=== PATIENT | male | born 1950 | race Caucasian/White ===

== ENCOUNTER 2018-06-14 07:02 | Day surgery (SDC) | payer MEDICARE, OTHER ==
[~2018-06-14] VITALS: Ht 182.9 cm; Wt 88.0 kg
[~2018-06-14 07:02] MED LIST: ATOR40TA PO; Aspirin EC81 MG PO; Atenolol50 MG PO; CLOP75 PO; Coq-1030 MG PO; FAMO20 PO; FINA5 PO; HYDCHL25 PO; ISOD40ER PO; Isosorbide Mono60 MG PO; LISI20 PO; LORPSEER12 PO; METF500 PO; METF500C PO; METH5 PO; Mirapex0.25 MG PO; Multivitamin1 EAC1 PO; Nitrostat0.4 MG SL; Simvastatin20 MG PO; TAMS.4ER; TAMS.4ER PO; Testostero100 MG/1 M IM; VITAMIN D32000 UNIT PO; [UNRECOGNIZED DRUG - REMARK]
[2018-06-14] MEDS ORDERED: CLOP75 PO (11:38)
--- NOTE | 2018-06-14 13:44 | NUR ---
PT OUT OF BED, GETTING DRESSED WITH NO NEEDED ASSISTANCE, BILATERAL GROIN SITES STABLE. PT'S DAUGHTER CALLED ON TELEPHONE FOR RIDE HOME. PT VERBALIZED UNDERSTANDING OF D/C INSTRUCTIONS. PAPERWORK PLACED INTO DISCHARGE F[facility] OF [facility]. WILL CONTINUE TO MONITOR BILATERAL GROIN SITES UNTIL DISCHARGE.
--- NOTE | 2018-06-14 14:45 | NUR ---
PT DAUGHTER ARRIVES TO DRIVE HIM HOME. IV REMOVED FROM LEFT HAND WITH CATH INTACT, PRESSURE DRESSING APPLIED. BILATERAL GROIN SITES APPEAR TO BE STABLE. PT ATE 75% OF LUNCH TRAY. AMBULATES WITH STEADY GAIT. DENIES PAIN. PT INFORMED THAT FOLLOW UP APPOINTMENT HAS NOT BEEN SCHEDULED YET, MESSAGE HAS BEEN LEFT FOR [facility] OFFICE TO CALL PT WITH DATE AND TIME. DONTE AT TIME OF DISPO.
== END 2018-06-14 14:45 | disposition home or self-care (01) ==
LOC: MHTC 07:02
DX: I65.23 Occlusion and stenosis of bilateral carotid arteries (principal); I77.1 Stricture of artery; Z95.1 Presence of aortocoronary bypass graft; E11.51 Type 2 diabetes mellitus with diabetic peripheral angiopathy without gangrene; I35.0 Nonrheumatic aortic (valve) stenosis; I10 Essential (primary) hypertension; E78.5 Hyperlipidemia, unspecified; K21.9 Gastro-esophageal reflux disease without esophagitis; Z95.5 Presence of coronary angioplasty implant and graft; Z87.891 Personal history of nicotine dependence; Z82.49 Family history of ischemic heart disease and other diseases of the circulatory system; Z79.82 Long term (current) use of aspirin; Z79.899 Other long term (current) drug therapy; Z79.84 Long term (current) use of oral hypoglycemic drugs
CPT/HCPCS: 36223; 36225; 37218; 37221; 37222; 75625; 75716; 82947; 85347; 99152; 99153; C1725; C1760; C1769; C1876; C1887; C1894; J1200; J1644; J2250; J3010; J7030; Q9967

== ENCOUNTER 2018-06-18 21:14 | Emergency (ER) | payer MEDICARE, OTHER ==
[~2018-06-18] VITALS: Ht 177.8 cm; Wt 88.0 kg
== END 2018-06-18 21:45 | disposition home or self-care (01) ==
LOC: ER 21:14
DX: S50.11XA Contusion of right forearm, initial encounter (principal); X58.XXXA Exposure to other specified factors, initial encounter; Z79.899 Other long term (current) drug therapy; Z79.84 Long term (current) use of oral hypoglycemic drugs; Z79.82 Long term (current) use of aspirin; I10 Essential (primary) hypertension; E11.9 Type 2 diabetes mellitus without complications; Z87.891 Personal history of nicotine dependence
CPT/HCPCS: 99282

== ENCOUNTER → 2018-11-24 | Outpatient (CLI) | payer MEDICARE, OTHER ==
[2018-11-24 12:54] LABS: BASOPHILS ABSOLUTE AUTO 0.02 K/mm3 (0.00-0.23); BASOPHILS PERCENT AUTO 0 % (0-2); EOSINOPHILS ABSOLUTE AUTO 0.07 K/mm3 (0.00-0.68); EOSINOPHILS PERCENT AUTO 1 % (0-6); Hematocrit 38.9 % (37.0-53.0); Hemoglobin 13.9 g/dL (13.5-17.5); IMMATURE GRAN ABSOLUTE AUTO 0.02 K/mm3 (0.00-0.10); IMMATURE GRAN PERCENT AUTO 0 % (0-1); LYMPHOCYTES ABSOLUTE AUTO 2.35 K/mm3 (0.84-5.20); LYMPHOCYTES PERCENT AUTO 40 % (21-46); MONOCYTES PERCENT AUTO 7 % (4-13); Mean Corpuscular HGB 32.8 pg (26.0-34.0); Mean Corpuscular HGB Conc 35.7 g/dL (31.5-36.5); Mean Corpuscular Volume 92 fL (80-100); NEUTROPHILS ABSOLUTE AUTO 3.09 K/mm3 (1.96-9.15); NEUTROPHILS PERCENT AUTO 52 % (41-73); RDW Coefficient Variation 12.6 % (11.7-14.2); RDW Standard Deviation 41.7 fL (35.1-46.3); Red Blood Cell Count 4.24 M/mm3 (4.30-5.90); White Blood Cell Count 5.95 K/mm3 (4.00-11.30)
[2018-11-24 12:56] LABS: Mean Platelet Volume 10.6 fL (9.1-12.4); Platelet Count 135 K/mm3 (150-400)
[2018-11-24 13:04] LABS: Alanine Aminotransfer (ALT/SGP 40 U/L (12-78); Albumin, Blood 3.4 g/dL (3.4-5.0); Albumin/Globulin Ratio 0.9 (0.8-1.8); Alk Phos 91 U/L (40-126); Anion Gap 10 mmol/L (6-16); Aspartate Aminotrans (AST/SGOT 31 U/L (12-37); Bilirubin, Total 0.5 mg/dL (0.1-1.0); Blood Urea Nitrogen 18 mg/dL (8-24); Bun/Creatinine Ratio 18.2 (12.0-20.0); CO2, Blood 24 mmol/L (21-32); Calcium, Blood 8.8 mg/dL (8.5-10.1); Chloride, Blood 101 mmol/L (98-108); Creatinine, Blood 0.99 mg/dL (0.60-1.20); Globulin, Blood 3.9 g/dL (2.2-4.0); Glomerular Filtration Rate >60 (60-); Glucose, Blood 244 mg/dL (70-99); Potassium, Blood 4.1 mmol/L (3.5-5.5); Sodium, Blood 135 mmol/L (136-145); Total Protein, Blood 7.3 g/dL (6.4-8.2)
== END | disposition home or self-care (01) ==
LOC: LAB EV 12:42 → LAB SHORT 12:42
PROVIDERS: General Practice
DX: L08.9 Local infection of the skin and subcutaneous tissue, unspecified (principal)
CPT/HCPCS: 80053; 85025

== ENCOUNTER 2020-10-29 10:20 | Day surgery (SDC) | payer MEDICARE, OTHER ==
[~2020-10-29] VITALS: Ht 177.8 cm; Wt 88.7 kg
[~2020-10-29 10:20] MED LIST changes: +GLIP5 PO; +PIOG15 PO; +VITAMIN D325 MC3 PO
== END 2020-10-29 11:11 | disposition home or self-care (01) ==
LOC: ORSCSDS 10:20
PROVIDERS: Anesthesiology
PROC: 3E0R33Z Introduction of Anti-inflammatory into Spinal Canal, Percutaneous Approach (ICD-10-PCS; principal; 2020-10-29 11:30)
DX: M54.16 Radiculopathy, lumbar region (principal); M96.1 Postlaminectomy syndrome, not elsewhere classified; M54.89 Other dorsalgia; Z87.891 Personal history of nicotine dependence; E11.9 Type 2 diabetes mellitus without complications; Z79.82 Long term (current) use of aspirin; Z79.84 Long term (current) use of oral hypoglycemic drugs; Z79.899 Other long term (current) drug therapy
CPT/HCPCS: J1040

== ENCOUNTER 2022-12-14 11:08 | Day surgery (SDC) | payer MEDICARE, OTHER ==
[~2022-12-14] VITALS: Ht 177.8 cm; Wt 87.5 kg
[2022-12-14] VITALS (8 sets, daily range): BP systolic 138–178; BP diastolic 62–92
[~2022-12-14 11:08] MED LIST changes: +AFRIN15 M6 INH; +ALLEGRA ALLERG180 MG PO; +ATEN50 PO; +EFFIENT10 MG PO; +HYDACE10B PO; -LISI20 PO; +LISI5 PO; +NITR.4SL SL; +OXYM.05NI; +PRAM.125 PO; -TAMS.4ER
--- NOTE | 2022-12-14 17:18 | NUR ---
oozing noted to access site, manual pressure held for 10 min and new robina placed.
--- NOTE | 2022-12-14 18:10 | NUR ---
Dishcarge instructions reviewed with pt and family member. Small amount of oozing noted to chaitanya quarles. Pt able to get dressed w/o difficulty. Denies any pain at this time. Groin is soft and non tender, vss. Pt instructed on care if oozing begins from site once he is home, and verbalized understanding. Pt also instructed if groin becomes swollen and painful to return to the ED. PT vss upon departure. Taken via wheel chair to exit, pt daughter to drive him home.
== END 2022-12-14 22:41 | disposition home or self-care (01) ==
LOC: MHTC 11:08
DX: E11.51 Type 2 diabetes mellitus with diabetic peripheral angiopathy without gangrene (principal); I25.10 Atherosclerotic heart disease of native coronary artery without angina pectoris; K21.9 Gastro-esophageal reflux disease without esophagitis; I10 Essential (primary) hypertension; Z87.891 Personal history of nicotine dependence
CPT/HCPCS: 75716; 75774; 76937; 99152; 99153; C1725; C1769; C1874; C1887; C1894; C9764; C9765; J1644; J2250; J3010; J7030; J7050; Q9967

== ENCOUNTER 2023-05-27 15:51 | Observation (INO) | payer MEDICARE, OTHER ==
[~2023-05-27] VITALS: Ht 177.8 cm; Wt 88.0 kg
[~2023-05-27 15:51] MED LIST changes: +LISI20 PO; -LISI5 PO
[2023-05-27] MEDS ORDERED: Pioglitazone HCl 15 MG Tab PO ONE (19:50)
[2023-05-27] MEDS ORDERED: Atenolol 50 MG Tab PO ONE (19:50)
[2023-05-27] MEDS ORDERED: GlipiZIDE 5 MG Tab PO ONE (19:50)
[2023-05-27] MEDS ORDERED: Lisinopril 20 MG Tab PO ONE (19:50)
[2023-05-27] MEDS ORDERED: Tamsulosin HCl 0.4 MG Cap PO ONE (19:50)
[2023-05-27] MEDS ORDERED: Aspirin 325 MG Tab PO ONE (19:50)
[2023-05-27] MEDS ORDERED: HydrALAZINE HCl 20 MG / ML 1ML Vial IV ONE (21:40)
[2023-05-27 22:47] LABS: Anti-Xa UFH, PHA Monitoring <0.10 IU/mL; International Normalized Ratio 1.01; Prothrombin Time Results 10.6 Sec (9.7-11.5)
[2023-05-27] MEDS ORDERED: Heparin Sodium,Porcine/0.5 NS 500 ML IV SCH (23:20)
[2023-05-28] VITALS (8 sets, daily range): BP systolic 130–169; BP diastolic 61–93
[2023-05-28] MEDS ORDERED: Ondansetron HCl 2 MG / ML 2ML Vial IV PRN (00:15)
[2023-05-28] MEDS ORDERED: Acetaminophen 325 MG TABLET PO PRN (00:20)
[2023-05-28] MEDS ORDERED: FLU VACC QS2023-24(6MOS UP)/PF 60 MCG/0.5 ML SYRINGE IM ONE (00:20)
[2023-05-28] MEDS ORDERED: OXYMETAZOLINE 0.05% PRN (00:25)
[2023-05-28] MEDS ORDERED: HYDROcodone 5-APAP 325 TAB PO PRN (00:25)
[2023-05-28] MEDS ORDERED: Nitroglycerin 0.4 MG SUBL SL PRN (00:25)
[2023-05-28] MEDS ORDERED: Lactated Ringer's 1,000 ML IV SCH (01:00)
--- NOTE | 2023-05-28 05:24 | NUR ---
Admit note/Shift summary: Patient was brought to the floor from the ER on the strecher. He was able to stand and transfer from the stretcher to the bed. Patient came to the ER today due to pressure in his chest when walking. He was brought to the floor with a Heparin drip infusing at 26.7 ml/hr. IV site looks good with no redness or swelling noted. Patient is alert and oriented x 4. His daughter is at his bedside. He is on room air. He has a tele monitor and is in a sinus rhythm. Patient denies pain at this time. He has a history of having several cardiac stents placed in the past. He has diagnosis of HTN and DM type 2. He is on po medication at home to control his diabetes. He lives at home with his and other family members. A skin check was done with Fili De León RN. No skin breakdown noted. His troponin level was [address] Diaz was notified and a repeat was ordered for the AM. Patient is NPO since midnight. No distress noted. Dr. Diaz was notified.
[2023-05-28] MEDS ORDERED: Insulin Regular 100 UNIT/ML 10ML Vial SC SCH (06:00)
[2023-05-28 08:20] LABS: BASOPHILS ABSOLUTE AUTO 0.02 K/mm3 (0.00-0.23); BASOPHILS PERCENT AUTO 0 % (0-2); EOSINOPHILS ABSOLUTE AUTO 0.11 K/mm3 (0.00-0.68); EOSINOPHILS PERCENT AUTO 2 % (0-6); Hemoglobin 13.1 g/dL (13.5-17.5); IMMATURE GRAN ABSOLUTE AUTO 0.03 K/mm3 (0.00-0.10); IMMATURE GRAN PERCENT AUTO 1 % (0-1); LYMPHOCYTES ABSOLUTE AUTO 3.12 K/mm3 (0.84-5.20); LYMPHOCYTES PERCENT AUTO 48 % (21-46); MONOCYTES ABSOLUTE AUTO 0.56 K/mm3 (0.16-1.47); MONOCYTES PERCENT AUTO 9 % (4-13); Mean Corpuscular HGB 32.8 pg (26.0-34.0); Mean Corpuscular HGB Conc 35.4 g/dL (31.5-36.5); Mean Corpuscular Volume 93 fL (80-100); Mean Platelet Volume 10.2 fL (9.1-12.4); NEUTROPHILS PERCENT AUTO 41 % (41-73); Platelet Count 143 K/mm3 (150-400); RDW Coefficient Variation 12.4 % (11.7-14.2); RDW Standard Deviation 42.5 fL (35.1-46.3); White Blood Cell Count 6.54 K/mm3 (4.00-11.30)
[2023-05-28 08:22] LABS: Albumin, Blood 3.4 g/dL (3.4-5.0); Albumin/Globulin Ratio 0.9 (0.8-1.8); Bilirubin, Total 0.5 mg/dL (0.1-1.0); Bun/Creatinine Ratio 22.9 (12.0-20.0); Calcium, Blood 9.5 mg/dL (8.5-10.1); Creatinine, Blood 0.66 mg/dL (0.60-1.20); Globulin, Blood 3.6 g/dL (2.2-4.0)
[2023-05-28] MEDS ORDERED: Dose Adjust by Pharmacy XX STA ×3 (08:43→20:41)
[2023-05-28] MEDS ORDERED: Lisinopril 5 MG Tab PO SCH (09:00)
[2023-05-28] MEDS ORDERED: Metoprolol Succinate 25 MG TABCR PO SCH (09:00)
[2023-05-28] MEDS ORDERED: Aspirin 81 MG Chew PO SCH (09:00)
[2023-05-28] MEDS ORDERED: Loratadine 10 MG Tab PO SCH (09:00)
[2023-05-28] MEDS ORDERED: Docusate Sodium 100 MG Cap PO SCH (09:00)
[2023-05-28] MEDS ORDERED: Cholecalciferol 1000 Unit Tablet (=25MCG) PO SCH (09:00)
[2023-05-28] MEDS ORDERED: Tamsulosin HCl 0.4 MG Cap PO SCH (09:00)
[2023-05-28] MEDS ORDERED: Atorvastatin 40 MG Tab PO SCH (09:00)
[2023-05-28] MEDS ORDERED: Lisinopril 10 MG Tab PO ONE (13:00)
--- NOTE | 2023-05-28 18:46 | NUR ---
SHIFT SUMMARY PATIENT WITH NO CHEST PAIN TODAY, BLOOD PRESSURE WAS A LITTLE HIGH AND REQUIRED OPTIMIZATION WITH MEDICATION. PATIENT ONLY SHORT OF BREATH WITH EXERTION. BED IN LOW POSITION, CALL LIGHT IN REACH. PATIENT ABLE TO MAKE NEEDS KNOWN. DAUGHTER AT BEDSIDE.
[2023-05-29 02:44] VITALS: BP 106/55
--- NOTE | 2023-05-29 04:03 | NUR ---
Mr. Sorto has rested quietly through out the night. He has not had any complaints of chest pain. His respirations are regular and unlabored on room air. Skin is warm and dry. He is alert and oriented x 4. His daughter stays in the room with him. He is independently ambulatory to the bathroom. He is on a heparin drip with remains at 26.7 ml/hr. He has been NPO since midnight for a stress test in the morning. He did not require any insulin during the night.
[2023-05-29 05:21] LABS: BASOPHILS ABSOLUTE AUTO 0.02 K/mm3 (0.00-0.23); BASOPHILS PERCENT AUTO 0 % (0-2); EOSINOPHILS ABSOLUTE AUTO 0.09 K/mm3 (0.00-0.68); EOSINOPHILS PERCENT AUTO 1 % (0-6); Hematocrit 40.7 % (37.0-53.0); Hemoglobin 14.2 g/dL (13.5-17.5); IMMATURE GRAN ABSOLUTE AUTO 0.02 K/mm3 (0.00-0.10); IMMATURE GRAN PERCENT AUTO 0 % (0-1); LYMPHOCYTES ABSOLUTE AUTO 3.33 K/mm3 (0.84-5.20); LYMPHOCYTES PERCENT AUTO 46 % (21-46); MONOCYTES PERCENT AUTO 8 % (4-13); Mean Corpuscular HGB 32.9 pg (26.0-34.0); Mean Corpuscular HGB Conc 34.9 g/dL (31.5-36.5); Mean Corpuscular Volume 94 fL (80-100); Mean Platelet Volume 10.2 fL (9.1-12.4); NEUTROPHILS ABSOLUTE AUTO 3.23 K/mm3 (1.96-9.15); NEUTROPHILS PERCENT AUTO 44 % (41-73); Platelet Count 145 K/mm3 (150-400); RDW Coefficient Variation 12.3 % (11.7-14.2); RDW Standard Deviation 42.8 fL (35.1-46.3); Red Blood Cell Count 4.32 M/mm3 (4.30-5.90); White Blood Cell Count 7.29 K/mm3 (4.00-11.30)
[2023-05-29 05:35] LABS: Bun/Creatinine Ratio 17.4 (12.0-20.0); Calcium, Blood 9.7 mg/dL (8.5-10.1); Creatinine, Blood 0.75 mg/dL (0.60-1.20); Potassium, Blood 4.2 mmol/L (3.5-5.5)
[2023-05-29] MEDS ORDERED: Dose Adjust by Pharmacy XX STA ×2 (05:36→12:25)
[2023-05-29 07:59] VITALS: BP 131/68
[2023-05-29] MEDS ORDERED: Lisinopril 20 MG Tab PO SCH (09:00)
[2023-05-29] MEDS ORDERED: Regadenoson 0.4 MG/5 ML SYRINGE ONE (09:13)
[2023-05-29] MEDS ORDERED: Aminophylline 250MG / 10ML 10 ML Vial ONE (09:13)
[2023-05-29] MEDS ORDERED: Isosorbide Mono30 MG PO (15:42)
[2023-05-29] MEDS ORDERED: METO25ER PO (15:43)
[2023-05-29] MEDS ORDERED: Isosorbide Mononitrate 30 MG TABCR PO SCH (16:00)
[2023-05-29 16:18] VITALS: BP 136/74
[2023-05-29] MEDS ORDERED: Insulin Regular 100 UNIT/ML 10ML Vial SC SCH (16:30)
[2023-05-29 17:00] VITALS: BP 135/81
--- NOTE | 2023-05-29 18:30 | NUR ---
DISCHARGE SUMMARY PATIENT WITH NO ACUTE CHEST PAIN THROUGHOUT SHIFT. HE TOLERATED STRESS TEST TODAY. MEDICATION AND EDUCATION PACKET PRINTED AND GIVEN TO PATIENT AND REVIEWED WITH PATIENT AND DAUGHTER. ALL QUESTIONS ANSWERED REGARDING DISCHARGE AND MEDICATION CHANGES. CONSENT SIGNED, PATIENT LEFT UNIT AT 1205 WITH [facility] ON TRANSPORT CHAIR. AND LEAVING HOSPITAL VIA PRIVATE VEHICLE WITH DAUGHTER.
== END 2023-05-30 11:13 | disposition home or self-care (01) ==
LOC: ER 15:51 → MEDS 15:55 → ER 05-28 00:15 → MEDS 05-28 01:15
PROVIDERS: Internal Medicine; Student in an Organized Health Care Education/Training Program; ADMIT Student in an Organized Health Care Education/Training Program
DX: I25.110 Atherosclerotic heart disease of native coronary artery with unstable angina pectoris (principal); I10 Essential (primary) hypertension; I21.4 Non-ST elevation (NSTEMI) myocardial infarction; E11.51 Type 2 diabetes mellitus with diabetic peripheral angiopathy without gangrene; Z79.899 Other long term (current) drug therapy; Z95.1 Presence of aortocoronary bypass graft; Z98.61 Coronary angioplasty status; Z87.891 Personal history of nicotine dependence
CPT/HCPCS: 36415; 71046; 78452; 80048; 80053; 82947; 83036; 83735; 84484; 85025; 85520; 85610; 85730; 93005; 93010; 93017; 93306; 96365; 96366; 99285-25; A9270; A9500; G0378; J0280; J0360; J1644; J1815; J2785

== ENCOUNTER 2024-05-30 23:07 | Emergency (ER) | payer MEDICARE, OTHER ==
[~2024-05-30] VITALS: Ht 177.8 cm; Wt 85.3 kg
[~2024-05-30 23:07] MED LIST changes: +Isosorbide Mono30 MG PO; +METO25ER PO
[2024-05-31] MEDS ORDERED: Lidocaine 2% Jelly Uro-Jet UR ONE (01:05)
[2024-05-31 01:30] LABS: Source, Urine Foley catheter
[2024-05-31 01:47] LABS: Appearance, Urine Clear (Clear); Bilirubin, Urine Neg (Neg); Blood, Urine 1+ (Neg); Color, Urine Yellow (P-Yellow); Glucose Qualitative, Urine 4+ (Neg); Ketones, Urine 1+ (Neg); Leukocyte Esterase, Urine Neg (Neg); Nitrite, Urine Neg (Neg); Protein, Urine 2+ (Neg); Specific Gravity, Urine 1.015 (1.003-1.022); Urobilinogen, Urine NORM (Normal)
[2024-05-31 01:55] LABS: Bacteria Few /hpf; Red Blood Cells, Urine 0-2 /hpf (0-2); Squamous Epithelial Cells Few /hpf (Few); White Blood Cells, Urine 0-2 /hpf (0-5)
[2024-05-31 02:40] LABS: BASOPHILS ABSOLUTE AUTO 0.03 K/mm3 (0.00-0.23); BASOPHILS PERCENT AUTO 0 % (0-2); EOSINOPHILS PERCENT AUTO 0 % (0-6); Hematocrit 39.1 % (37.0-53.0); Hemoglobin 14.4 g/dL (13.5-17.5); IMMATURE GRAN ABSOLUTE AUTO 0.04 K/mm3 (0.00-0.10); IMMATURE GRAN PERCENT AUTO 0 % (0-1); LYMPHOCYTES ABSOLUTE AUTO 1.45 K/mm3 (0.84-5.20); LYMPHOCYTES PERCENT AUTO 12 % (21-46); MONOCYTES ABSOLUTE AUTO 0.75 K/mm3 (0.16-1.47); MONOCYTES PERCENT AUTO 6 % (4-13); Mean Corpuscular HGB 33.5 pg (26.0-34.0); Mean Corpuscular HGB Conc 36.8 g/dL (31.5-36.5); Mean Corpuscular Volume 91 fL (80-100); Mean Platelet Volume 10.4 fL (9.1-12.4); NEUTROPHILS ABSOLUTE AUTO 10.04 K/mm3 (1.96-9.15); NEUTROPHILS PERCENT AUTO 82 % (41-73); Platelet Count 131 K/mm3 (150-400); RDW Standard Deviation 39.8 fL (35.1-46.3); White Blood Cell Count 12.31 K/mm3 (4.00-11.30)
[2024-05-31 03:00] VITALS: BP 135/73
[2024-05-31] MEDS ORDERED: DOCU100 PO (03:04)
[2024-05-31 03:06] LABS: Bilirubin, Total 0.8 mg/dL (0.1-1.0); Bun/Creatinine Ratio 21.5 (12.0-20.0); Calcium, Blood 9.9 mg/dL (8.5-10.1); Creatinine, Blood 0.98 mg/dL (0.60-1.20); Globulin, Blood 3.9 g/dL (2.2-4.0); Total Protein, Blood 7.9 g/dL (6.4-8.2)
== END 2024-05-31 03:22 | disposition home or self-care (01) ==
LOC: ER 23:07
PROVIDERS: Emergency Medicine
DX: K59.00 Constipation, unspecified (principal); R33.9 Retention of urine, unspecified; I10 Essential (primary) hypertension; E11.9 Type 2 diabetes mellitus without complications; Z46.6 Encounter for fitting and adjustment of urinary device; Z79.82 Long term (current) use of aspirin; Z79.899 Other long term (current) drug therapy
CPT/HCPCS: 51702; 80053; 81001; 85025; 99283-25